=== PATIENT | female | born 1965 | race Caucasian/White ===

== ENCOUNTER 2017-12-24 09:14 | Day surgery (SDC) | payer OTHER ==
[2017-12-24] MEDS: MORPHINE 4 MG/ML 1ML VIAL (J2270) IV ×2 (09:52→10:23)
[2017-12-24] MEDS: ONDANSETRON 4MG/2ML VIAL (J2405) IV (09:52)
[2017-12-24] MEDS: ADACEL/BOOSTRIX VACCINE (DIPHTH/PERTUSS/ACELL/TETANUS)0.5ML SYR (90715) IM (10:12)
[2017-12-24] MEDS: NS 1,000 ML IV (10:41)
[2017-12-24] MEDS: PROPOFOL 200 MG/20 ML VIAL IV (10:43)
[2017-12-24] MEDS ORDERED: NS 1,000 ML IV (11:30)
[2017-12-24] MEDS ORDERED: dexameTHASONE 10 MG/1 ML VIAL PRES.FREE (J1100) (11:31)
[2017-12-24] MEDS ORDERED: ROPIvacaine 0.5% 30 ML INJECTION (J2795 PER 1MG) (11:31)
[2017-12-24 11:52] LABS: HEMATOCRIT 47.1 % (36.0-47.0); HEMOGLOBIN 15.4 g/dl (12.0-16.0); MEAN CORPUSCULAR HEMOGLOBIN 31.8 pg (27.0-33.0); MEAN CORPUSCULAR HGB CONC 32.7 g/dl (32.0-36.5); MEAN CORPUSCULAR VOLUME 97.1 fl (80.0-96.0); PLATELET COUNT, AUTOMATED 231 10^3/uL (150-450); RED BLOOD COUNT 4.85 10^6/uL (4.00-5.40); RED CELL DISTRIBUTION WIDTH 13.2 % (11.5-14.5)
[2017-12-24 11:59] LABS: INR 0.93; PROTHROMBIN TIME 12.5 SECONDS (12.4-14.5)
[2017-12-24 12:00] LABS: PARTIAL THROMBOPLASTIN TIME 23.7 SECONDS (26.8-37.9)
[2017-12-24 12:21] LABS: ANION GAP 9 MEQ/L (8-16); BLOOD UREA NITROGEN 14 MG/DL (7-18); CARBON DIOXIDE LEVEL 24 MEQ/L (21-32); CHLORIDE LEVEL 109 MEQ/L (98-107); CREATININE FOR GFR 0.99 MG/DL (0.55-1.30); GLOMERULAR FILTRATION RATE > 60.0 (>51); GLUCOSE, FASTING 126 MG/DL (70-100); POTASSIUM SERUM 4.6 MEQ/L (3.5-5.1); SODIUM LEVEL 142 MEQ/L (136-145)
[2017-12-24 12:29] LABS: FREE T4 1.31 NG/DL (0.76-1.46)
[2017-12-24] MEDS ORDERED: MORPHINE 4 MG/ML 1ML VIAL (J2270) IV ×2 (14:15→14:30)
[2017-12-24] MEDS ORDERED: ROCURONIUM BROMIDE 50 MG/5 ML VIAL As Ordered (14:33)
[2017-12-24] MEDS ORDERED: PROPOFOL 200 MG/20 ML VIAL As Ordered ×2 (14:33→16:49)
[2017-12-24] MEDS ORDERED: LIDOCAINE 2% INJ 100 MG/5 ML SDV (FOR ANES.) As Ordered (14:33)
[2017-12-24] MEDS ORDERED: MIDAZOLAM INJ 2 MG/2 ML VIAL (J2250) As Ordered (14:34)
[2017-12-24] MEDS ORDERED: fentaNYL 100 MCG/2 ML INJECTION (J3010) As Ordered ×3 (14:34→18:43)
[2017-12-24] MEDS: MIDAZOLAM INJ 2 MG/2 ML VIAL (J2250) IV (14:57)
[2017-12-24] MEDS: fentaNYL 100 MCG/2 ML INJECTION (J3010) IV (14:57)
[2017-12-24] MEDS ORDERED: ceFAZolin 1GM INJ (J0690 PER 500MG) As Ordered (15:46)
[2017-12-24] MEDS: ceFAZolin 2 GM/D5W 50 ML IV BAG (J0690 PER 500MG) As Ordered (17:00)
[2017-12-24] MEDS ORDERED: dexameTHASONE 4 MG/ML 1ML VIAL (J1100) As Ordered ×2 (17:18)
[2017-12-24] MEDS ORDERED: HYDROmorphone HCL 2 MG/ML 1ML VIAL (J1170) As Ordered (18:40)
[2017-12-24] MEDS ORDERED: GLYCOPYRROLATE INJ 0.2 MG/ML 2 ML VIAL As Ordered (19:16)
[2017-12-24] MEDS ORDERED: ONDANSETRON 4MG/2ML VIAL (J2405) As Ordered (19:16)
[2017-12-24] MEDS ORDERED: KETOROLAC 60 MG/2 ML VIAL (J1885) As Ordered (19:16)
[2017-12-24] MEDS ORDERED: NEOSTIGMINE 10 MG/10 ML VIAL (J2710) As Ordered (19:16)
[2017-12-24] MEDS ORDERED: METOCLOPRAMIDE INJ 10MG/2ML VIAL (J2765) As Ordered (19:16)
[2017-12-24] MEDS: BUPIVACAINE HCL 0.5% 30 ML VIAL As Ordered (19:51)
[2017-12-24] MEDS ORDERED: LR 1,000 ML IV ×2 (20:30→21:00)
[2017-12-24] MEDS ORDERED: oxyCODONE 5MG TAB PO (20:30)
[2017-12-24] MEDS ORDERED: PERCOCET 5MG/325MG TAB PO ×3 (21:00→21:15)
[2017-12-24] MEDS ORDERED: ONDANSETRON 4MG/2ML VIAL (J2405) IV (21:00)
[2017-12-24] MEDS ORDERED: fentaNYL 100 MCG/2 ML INJECTION (J3010) IV (21:00)
[2017-12-24] MEDS ORDERED: ACETAMINOPHEN 500 MG TAB PO (22:00)
[2017-12-25] MEDS: ASPIRIN 81 MG CHEW TABLET PO (09:33)
[2017-12-25] MEDS: oxyCODONE 5MG TAB PO (13:00)
== END 2017-12-25 14:00 | disposition home or self-care (01) ==
LOC: M SDC 12-25 14:00 → M ED 09:14 → M SDC 11:30 → M MS5PR 22:51
DX: S82.852A Displaced trimalleolar fracture of left lower leg, initial encounter for closed fracture (principal); W00.1XXA Fall from stairs and steps due to ice and snow, initial encounter; Y92.098 Other place in other non-institutional residence as the place of occurrence of the external cause; E03.9 Hypothyroidism, unspecified; E66.9 Obesity, unspecified; Z79.899 Other long term (current) drug therapy; F17.210 Nicotine dependence, cigarettes, uncomplicated
CPT/HCPCS: 27822

== ENCOUNTER → 2021-12-27 | Outpatient (CLI) | payer OTHER ==
[~2021-12-27] MED LIST: ALDA25TA2 PO; ASPI-1 PO; ASPI81TA26 PO; CHLO25TA3 PO; LASI40TA PO; LEVO200T3 PO; LEVO200T4 PO; LEVO25TA5 PO; MICR10CA PO; MULTCAP PO; OXYC-517 PO; VITMTA PO; ZEST20TA8 PO
== END ==
LOC: M WHC 11:16
PROVIDERS: ATTEND Nurse Practitioner Family
DX: R94.5 Abnormal results of liver function studies (principal)

== ENCOUNTER → 2022-03-28 | Outpatient (CLI) | payer OTHER | LOC: M RAD 15:42 | PROVIDERS: ATTEND Internal Medicine Cardiovascular Disease | DX: R91.8 Other nonspecific abnormal finding of lung field (principal); R06.02 Shortness of breath ==

== ENCOUNTER 2022-04-06 11:53 | Emergency (ER) | payer OTHER ==
[~2022-04-06] VITALS: Ht 167.6 cm; Wt 117.4 kg
[~2022-04-06 11:53] MED LIST changes: -ALBU8.5H; -FURO20TA2; -ISOVUE-370 76% 100ML VIAL As Ordered ONE; -LEVO175T2; -METF-838; -PANT40TA29; -PRED20TA; -TRUL10IN
[2022-04-06] MEDS ORDERED: METF-838 (12:39)
[2022-04-06] MEDS ORDERED: LEVO175T2 (12:39)
[2022-04-06] MEDS ORDERED: ALBU8.5H (12:39)
[2022-04-06] MEDS ORDERED: PANT40TA29 (12:39)
[2022-04-06] MEDS ORDERED: FURO20TA2 (12:39)
[2022-04-06] MEDS ORDERED: TRUL10IN (12:39)
[2022-04-06] MEDS ORDERED: PRED20TA (12:39)
[2022-04-06 14:10] LABS: BASO % 0.1 % (0.0-1.0); EOS % 0.1 % (0.0-3.0); HEMATOCRIT 37.3 % (36.0-47.0); HEMOGLOBIN 13.2 g/dl (12.0-15.5); LYMPH # 0.7 10^3/uL (1.5-5.0); LYMPH % 7.6 % (24.0-44.0); MEAN CORPUSCULAR HEMOGLOBIN 36.7 pg (27.0-33.0); MEAN CORPUSCULAR HGB CONC 35.4 g/dl (32.0-36.5); MEAN CORPUSCULAR VOLUME 103.6 fl (80.0-96.0); MONO # 0.5 10^3/uL (0.0-0.8); MONO % 5.4 % (2.0-8.0); NEUTROPHILS # 7.7 10^3/uL (1.5-8.5); NEUTROPHILS % 86.1 % (36.0-66.0); PLATELET COUNT, AUTOMATED 104 10^3/uL (150-450)
[2022-04-06 14:48] LABS: ALBUMIN 1.9 GM/DL (3.2-5.2); ALT/SGPT 273 U/L (12-78); BILIRUBIN,DIRECT 3.1 MG/DL (0.0-0.2); BILIRUBIN,TOTAL 6.3 MG/DL (0.2-1.0); BLOOD UREA NITROGEN 16 MG/DL (7-18); CALCIUM LEVEL 8.3 MG/DL (8.5-10.1); CARBON DIOXIDE LEVEL 25 MEQ/L (21-32); CHLORIDE LEVEL 100 MEQ/L (98-107); CREATININE FOR GFR 0.98 MG/DL (0.55-1.30); GLOMERULAR FILTRATION RATE > 60.0 (>51); GLUCOSE, FASTING 415 MG/DL (70-100); POTASSIUM SERUM 4.9 MEQ/L (3.5-5.1); SODIUM LEVEL 132 MEQ/L (136-145); TOTAL PROTEIN 7.2 GM/DL (6.4-8.2)
[2022-04-06 16:36] VITALS: BP 158/88
== END 2022-04-06 16:37 | disposition home or self-care (01) ==
LOC: M ED 11:53
DX: K75.4 Autoimmune hepatitis (principal); R22.43 Localized swelling, mass and lump, lower limb, bilateral; E11.9 Type 2 diabetes mellitus without complications; E78.5 Hyperlipidemia, unspecified; I10 Essential (primary) hypertension; Z79.51 Long term (current) use of inhaled steroids; Z79.4 Long term (current) use of insulin; Z79.899 Other long term (current) drug therapy

== ENCOUNTER → 2022-04-06 | Outpatient (CLI) | payer OTHER ==
[~2022-04-06] MED LIST changes: +ALBU8.5H; +FURO20TA2; +ISOVUE-370 76% 100ML VIAL As Ordered ONE; +LEVO175T2; +METF-838; +PANT40TA29; +PRED20TA; +TRUL10IN
== END ==
LOC: M RAD 08:33
PROVIDERS: ATTEND Internal Medicine Cardiovascular Disease
DX: R06.02 Shortness of breath (principal); R79.1 Abnormal coagulation profile; K74.60 Unspecified cirrhosis of liver; R18.8 Other ascites; J98.11 Atelectasis
CPT/HCPCS: 71275; Q9967

== ENCOUNTER → 2022-05-10 | Outpatient (CLI) | payer OTHER ==
[~2022-05-10] MED LIST changes: +ALBU8.5H; +BASA100I SC; +FURO20TA2; +INSUHUMDS SC; +LEVO175T2; +LIDOCAINE 1% MDV 20ML VIAL As Ordered ONE; +METF-838; +PANT40TA29; +PRED20TA; +SPIR-10 PO; +TRUL10IN
[2022-05-10 11:30] VITALS: BP 127/66
== END ==
LOC: M IRPRO 09:05
DX: K74.60 Unspecified cirrhosis of liver (principal); R17 Unspecified jaundice; R79.89 Other specified abnormal findings of blood chemistry

== ENCOUNTER → 2022-10-11 | Outpatient (REF) ==
[~2022-10-11] MED LIST changes: -LIDOCAINE 1% MDV 20ML VIAL As Ordered ONE
== END ==
LOC: M PLAIMG 14:05
PROVIDERS: ATTEND Internal Medicine
DX: R52 Pain, unspecified (principal)

== ENCOUNTER → 2023-03-15 | Outpatient (REF) | payer OTHER ==
[2023-03-15 18:42] LABS: CREATININE, URINE 22.9 MG/DL; MALB URINE SIEMENS < 3.0 MG/L; MAU/CREAT RATIO 13.1 MCG/MG (0.0-30.0)
== END ==
LOC: M LAB REF 16:46
PROVIDERS: ATTEND Nurse Practitioner Family
DX: E10.65 Type 1 diabetes mellitus with hyperglycemia (principal)

== ENCOUNTER → 2023-04-12 | Outpatient (CLI) | payer OTHER | LOC: M RAD 07:18 | DX: K74.5 Biliary cirrhosis, unspecified (principal); I85.10 Secondary esophageal varices without bleeding ==

== ENCOUNTER → 2023-11-16 | Outpatient (CLI) | payer OTHER | LOC: M RAD 09:30 | PROVIDERS: ATTEND Internal Medicine Gastroenterology | DX: K75.4 Autoimmune hepatitis (principal); K74.60 Unspecified cirrhosis of liver ==

== ENCOUNTER → 2024-07-03 | Outpatient (CLI) | payer OTHER | LOC: M RAD 08:01 | PROVIDERS: ATTEND Internal Medicine Gastroenterology | DX: K75.4 Autoimmune hepatitis (principal); K74.60 Unspecified cirrhosis of liver; Z90.49 Acquired absence of other specified parts of digestive tract ==

== ENCOUNTER 2024-07-30 11:36 | Day surgery (SDC) | payer OTHER ==
[~2024-07-30] VITALS: Ht 167.6 cm; Wt 107.7 kg
[~2024-07-30 11:36] MED LIST changes: +AZAT50TA37 PO; +CARV6.25 PO; +ERGO500029 PO; +FARX1TAB3 PO; +FURO40TA2 PO; +LEXA1TAB2 PO; +METF-839 PO; +NS 250 ML IV ONE; +SPIR50TA4 PO; +SYNT150T PO; +VITA100093 PO; +WELLTAB38 PO
[2024-07-30] MEDS ORDERED: LIDOCAINE 2% 100MG/5ML SDV (FOR ANES.) As Ordered ONE (13:16)
[2024-07-30] MEDS ORDERED: propofoL 200 MG/20 ML VIAL As Ordered ONE (13:16)
[2024-07-30 14:08] VITALS: TEMP 97.5
[2024-07-30 14:25] VITALS: BP 117/79; O2SAT 95
== END 2024-07-30 14:26 | disposition home or self-care (01) ==
LOC: M OPP 11:36
PROVIDERS: ATTEND Internal Medicine Gastroenterology
DX: K74.60 Unspecified cirrhosis of liver (principal); K44.9 Diaphragmatic hernia without obstruction or gangrene; K31.89 Other diseases of stomach and duodenum; K75.4 Autoimmune hepatitis; E11.9 Type 2 diabetes mellitus without complications; Z86.19 Personal history of other infectious and parasitic diseases; E03.9 Hypothyroidism, unspecified; Z79.890 Hormone replacement therapy; Z79.84 Long term (current) use of oral hypoglycemic drugs; Z79.899 Other long term (current) drug therapy; Z79.4 Long term (current) use of insulin; Z88.8 Allergy status to other drugs, medicaments and biological substances; Z87.891 Personal history of nicotine dependence; I67.1 Cerebral aneurysm, nonruptured; Z86.16 Personal history of COVID-19

== ENCOUNTER → 2024-10-03 | Outpatient (CLI) | payer OTHER ==
[~2024-10-03] MED LIST changes: -NS 250 ML IV ONE
== END ==
LOC: M RAD 10:12
PROVIDERS: ATTEND Registered Nurse
DX: Z87.891 Personal history of nicotine dependence (principal); R91.1 Solitary pulmonary nodule; K74.60 Unspecified cirrhosis of liver

== ENCOUNTER → 2024-10-09 | Outpatient (CLI) | payer MEDICARE | LOC: M CARPUL 07:39 | PROVIDERS: ATTEND Registered Nurse | DX: R06.02 Shortness of breath (principal); I35.8 Other nonrheumatic aortic valve disorders; I77.810 Thoracic aortic ectasia ==